=== PATIENT | female | born 1950 | race Hispanic/Latino ===

== ENCOUNTER 2018-07-16 08:27 | Observation (INO) | payer MEDICARE ==
[2018-07-16] MEDS ORDERED: NACL 0.9% 500 ML 500 ML IV SCH (09:00)
[2018-07-16 09:31] LABS: Basophils % (Auto) 0.6 % (0.0-1.8); Eosinophils # (Auto) 0.3 K/mm3 (0.0-0.4); Eosinophils % (Auto) 3.8 % (0.0-4.3); Hematocrit 32.4 % (30.3-42.9); Hemoglobin 11.1 gm/dl (10.1-14.3); Lymphocytes # (Auto) 1.9 K/mm3 (1.2-5.4); Mean Corpuscular HGB Conc 34 % (30-34); Mean Corpuscular Volume 88 fl (79-97); Monocytes # (Auto) 0.5 K/mm3 (0.0-0.8); Monocytes % (Auto) 7.6 % (0.0-7.3); Platelet Count 239 K/mm3 (140-440); Red Blood Count 3.67 M/mm3 (3.65-5.03); Red Cell Distribution Width 13.7 % (13.2-15.2)
[2018-07-16 09:39] LABS: INR 0.88 (0.87-1.13)
[2018-07-16 09:40] LABS: Partial Thromboplastin Time 29.7 Sec. (24.2-36.6)
[2018-07-16 10:01] LABS: Calcium 9.8 mg/dL (8.4-10.2)
[2018-07-16] MEDS ORDERED: NITROGLYCERIN SYRINGE 3 ML ONE (10:42)
[2018-07-16] MEDS ORDERED: CALAN ONE (10:42)
[2018-07-16] MEDS ORDERED: XYLOCAINE 2% INFILTRATI ONE (10:42)
[2018-07-16] MEDS ORDERED: HEPARIN/NS 5000 UNIT/500ML(CATH LAB) 1,000 ML IR ONE (10:42)
[2018-07-16] MEDS ORDERED: HEPARIN 10,000 UNITS/10 ML ONE (10:42)
[2018-07-16] MEDS ORDERED: VERSED ONE (10:42)
[2018-07-16] MEDS: SUBLIMAZE ONE ×2 (11:14→11:17)
[2018-07-16] MEDS ORDERED: PLAVIX ONE (11:53)
[2018-07-16] MEDS ORDERED: ULTRAM PO PRN (12:10)
[2018-07-16] MEDS ORDERED: ZOFRAN IV PRN (12:10)
[2018-07-16] MEDS ORDERED: AMBIEN PO PRN (12:10)
--- NOTE | 2018-07-16 12:18 | Event Note ---
Date: 07/16/18 Patient presented for outpatient cardiac catheterization, indication of moderate severity lateral wall ischemia on stress testing. We found a 95% stenosis of the proximal circumflex. The saphenous vein graft to the circumflex system was occluded. We performed ad hoc angioplasty and stenting of the [place] circumflex with deployment of a 3.0 mm drug-eluting stent, excellent post-angioplasty result. She will be admitted for observation overnight, anticipated discharge tomorrow morning. On discharge, in addition to aspirin 325 daily and Lipitor 40 mg daily, we will add Imdur 30 mg daily, Plavix 75 mg daily, metoprolol 25 mg twice a day and lisinopril 2.5-5 mg daily.
--- NOTE | 2018-07-16 12:50 | Cardiac Catherization Report ---
CARDIAC CATHETERIZATION AND CORONARY ANGIOPLASTY REPORT REASON FOR PROCEDURE: The patient is a 67-year-old woman with coronary artery disease, and 18-year-old 3-vessel coronary bypass. She recently underwent a Lexiscan thallium stress test which was abnormal, revealing a moderate degree of reversible inferolateral wall ischemia. Based on the abnormal thallium, she was recommended for a cardiac catheterization. PROCEDURE: 1. Left heart catheterization. 2. Selective left and right coronary angiography. 3. Angiography of the left internal mammary artery graft. 4. Angiography of the saphenous vein graft. 5. Left ventricular angiography. 6. Angioplasty and stenting of the proximal circumflex artery. 7. Sedation time, start 11:14, end 11:50. The patient was prepped and draped in a sterile fashion after informed consent. Right femoral artery was entered using Seldinger technique followed by placement of a 6-[place]zech sheath. Selective left and right coronary angiography was performed using #4 left and right Deirdre catheters. The right Deirdre was used for saphenous vein graft angiography. A left internal mammary artery catheter was used for left internal mammary artery graft angiography. A pigtail catheter was used for left ventricle angiography. The angiograms were reviewed. CORONARY ANGIOGRAPHY: There was diffuse heavy calcification of both left and right coronary arteries. The left main coronary artery contained mild distal narrowing. The left anterior descending artery was completely occluded in its mid segment after a medium sized mid diagonal branch. There was diffuse mild atherosclerosis of the proximal LAD leading to its total occlusion. The diagonal branches were also diffusely diseased. The left internal mammary artery graft to the LAD was patent with good anastomosis to the mid LAD beyond the occlusion, and good distal runoff. The [place] circumflex artery contained a 95% stenosis of its proximal AV groove segment. This lesion led to a medium to large terminal obtuse marginal. The saphenous vein graft to the circumflex system was completely occluded at its origin. This appeared to be a chronically occluded vein graft at its ostium. The right coronary artery was dominant. This vessel was occluded in its proximal to mid segment. The saphenous vein graft to the distal right coronary artery was also chronically occluded at its origin. There was faint collateralization of the distal right coronary from the left coronary system. Left ventricular systolic function was well preserved, ejection fraction approximately 50%. CORONARY ANGIOPLASTY: After review of the angiograms, we recommended ad hoc coronary intervention to the proximal circumflex stenosis. We selected a #3 XB guiding catheter, advanced to the left coronary ostium. A 0.014 inch Punch Machine Hand 50 guidewire was transitioned into the circumflex, across the lesional segment. After optimal wire placement in the distal vessel, we then deployed a 2.5 mm balloon catheter to the proximal circumflex and adequately predilated the lesion. Following this, a 3.0 x 12 mm drug-eluting stent was then deployed across the lesional segment and inflated to optimal pressures. Following stenting, there was an excellent angiographic result, 0 residual stenosis and JERRY 3 flow down the vessel. We then removed the wires and the catheters and the patient was returned to the postprocedure unit in stable condition. The sheath will be removed when the patient's INR returns to adequate levels for sheath removal. The patient tolerated the procedure well and there were no complications. CONCLUSION: 1. Severe calcific 3-vessel disease. 2. Patent left internal mammary artery graft to the LAD. 3. Occluded saphenous vein graft to the circumflex system. There was a 95% stenosis of the proximal circumflex leading to a medium sized terminal obtuse marginal. 4. Occluded saphenous vein graft to the right coronary artery. The [place] right coronary is chronically occluded. The distal vessel is filled by faint left to right collaterals. 5. Well preserved left ventricular systolic function, ejection fraction 50%. 6. Successful angioplasty and stenting of the [place] circumflex, the greater than 95% stenosis was treated with angioplasty and stenting to a 0% residual following a 3.0 x 12 mm drug-eluting stent. [facility]# [id number] MURIEL/ROXY
[2018-07-16] MEDS ORDERED: NACL 0.9% 1000 ML 1,000 ML IV SCH (13:00)
[2018-07-16] MEDS: IMDUR PO SCH (18:10)
[2018-07-16] MEDS: ZESTRIL PO SCH (18:11)
[2018-07-16] MEDS: LOPRESSOR PO SCH (18:11)
[2018-07-17] MEDS: LOPRESSOR PO SCH ×2 (01:05→09:49)
[2018-07-17 04:27] VITALS: BP 105/46
[2018-07-17 07:59] LABS: Basophils % (Auto) 0.6 % (0.0-1.8); Eosinophils # (Auto) 0.3 K/mm3 (0.0-0.4); Eosinophils % (Auto) 4.9 % (0.0-4.3); Hematocrit 27.8 % (30.3-42.9); Hemoglobin 9.5 gm/dl (10.1-14.3); Lymphocytes # (Auto) 1.8 K/mm3 (1.2-5.4); Lymphocytes % (Auto) 32.7 % (13.4-35.0); Mean Corpuscular HGB Conc 34 % (30-34); Mean Corpuscular Volume 88 fl (79-97); Monocytes # (Auto) 0.5 K/mm3 (0.0-0.8); Monocytes % (Auto) 9.6 % (0.0-7.3); Platelet Count 217 K/mm3 (140-440); Red Blood Count 3.16 M/mm3 (3.65-5.03)
[2018-07-17 08:20] LABS: Creatine Kinase MB 2.9 ng/mL (0.0-4.0)
[2018-07-17 08:23] LABS: Calcium 8.2 mg/dL (8.4-10.2)
[2018-07-17 08:56] LABS: Chol/HDL Ratio 2.94 %
[2018-07-17] MEDS: ZESTRIL PO SCH (09:49)
[2018-07-17] MEDS: IMDUR PO SCH ×2 (09:49→11:21)
--- NOTE | 2018-07-17 09:58 | Short Stay Summary ---
Short Stay Documentation Date of service: 07/17/18 - History H&P: obtained from office - Allergies and Medications Current Medications: Allergies Sulfa (Sulfonamide Antibiotics) Allergy (Mild, Verified 07/16/18 09:03) Hives,RASH Home Medications Medication Instructions Recorded Confirmed Last Taken Type Aspirin [Aspirin TAB] 325 mg PO QDAY 07/16/18 07/16/18 07/15/18 History 1 tab AtorvaSTATin [Lipitor] 40 mg PO DAILY 07/16/18 07/16/18 07/15/18 History 1 tab Glimepiride [Amaryl] 4 mg PO DAILY 07/16/18 07/16/18 07/15/18 History 1 tab Levothyroxine [Synthroid] 125 mcg PO QAM 07/16/18 07/16/18 07/15/18 History 1 tab Active Medications Aspirin (Ecotrin) 325 mg PO QDAY [facility] Last Admin: 07/17/18 09:49 Dose: 325 mg Documented by: Atorvastatin Calcium (Lipitor) 40 mg PO DAILY [facility] Last Admin: 07/17/18 09:52 Dose: Not Given Documented by: Clopidogrel Bisulfate (Plavix) 75 mg PO QDAY [facility] Last Admin: 07/17/18 09:49 Dose: 75 mg Documented by: Glimepiride (Amaryl) 4 mg PO DAILY [facility] Last Admin: 07/17/18 09:49 Dose: Not Given Documented by: Isosorbide Mononitrate (Imdur) 30 mg PO QDAY [facility] Last Admin: 07/16/18 18:10 Dose: 30 mg Documented by: Levothyroxine Sodium (Synthroid) 125 mcg PO QAM [facility] Last Admin: 07/17/18 09:49 Dose: 125 mcg Documented by: Lisinopril (Zestril) 2.5 mg PO QDAY [facility] Last Admin: 07/17/18 09:49 Dose: Not Given Documented by: Metoprolol Tartrate (Lopressor) 25 mg PO BID [facility] Last Admin: 07/17/18 09:49 Dose: Not Given Documented by: Ondansetron HCl (Zofran) 4 mg IV Q8H PRN PRN Reason: N/V unrelieved by Reglan Tramadol HCl (Ultram) 50 mg PO Q4H PRN PRN Reason: Pain, Mild (1-3) Zolpidem Tartrate (Ambien) 5 mg PO QHS PRN PRN Reason: Sleep - Physical exam General appearance: no acute distress HEENT: PERRLA Lungs: Clear to auscultation Heart: Regular rate, Normal S1, Normal S2 - Brief post op/procedure progress note Condition: stable - Hospital course Hospital course: Patient presented for outpatient cardiac catheterization, indication of moderate severity lateral wall ischemia on stress testing. We found a 95% stenosis of the proximal circumflex. The saphenous vein graft to the circumflex system was occluded. We performed ad hoc angioplasty and stenting of the [place] circumflex with deployment of a 3.0 mm drug-eluting stent. Today, patient reports she has no chest pain or shortness of breath. Stable overnight observation. On discharge, in addition to aspirin 325 daily and Lipitor 40 mg daily, we will add Plavix 75 mg daily, metoprolol 25 mg twice a day and lisinopril 2.5 mg daily. We will hold Imdur due to borderline low blood pressure. Patient has been advised to follow up with her primary access database developer within 5-7 days. - Disposition Condition at discharge: Good Short Stay Discharge Plan Activity: advance as tolerated Weight Bearing Status: Partial Weight Bearing Diet: low fat, low cholesterol, low salt, diabetic Special Instructions: no heavy lifting (for 72 hours) Follow up with: DORIS LIU MD [Primary Care Provider] - 7 Days ROBERT GUTIERREZ MD [Staff Physician] - 7 Days Forms: CardCat PCI D/C Instructions Prescriptions: Metoprolol [Lopressor TAB] 25 mg PO BID #60 tablet Clopidogrel [Plavix] 75 mg PO QDAY #30 tablet Lisinopril [Zestril TAB] 2.5 mg PO QDAY #30 tablet
[2018-07-17] MEDS ORDERED: PLAVIX PO SCH (10:00)
[2018-07-17] MEDS ORDERED: ECOTRIN PO SCH (10:00)
[2018-07-17] MEDS ORDERED: SYNTHROID PO SCH (10:00)
[2018-07-17] MEDS ORDERED: AMARYL PO SCH (10:00)
--- NOTE | 2018-07-17 14:29 | XRay Report ---
PROCEDURE: XR CHEST 1V AP TECHNIQUE: Chest radiograph single view. HISTORY: post pci COMPARISONS: None . FINDINGS: Heart: Heart size normal. Mediastinum/Vessels: Trachea midline. Mediastinal contour unremarkable.. Lungs/Pleural space: No pneumothorax. No effusion. No acute airspace disease. Bony thorax: No acute osseous abnormality. Status post sternotomy. Status post thoracolumbar fusion. Life support devices: None. IMPRESSION: No acute cardiopulmonary abnormality. This document is electronically signed by Marco A Bustamante MD., Jul 17 2018 02:27:33 PM ET
== END 2018-07-17 13:00 | disposition home or self-care (01) ==
LOC: CATHLABREC 08:27 → 4A 12:10
PROVIDERS: ADMIT Internal Medicine Cardiovascular Disease; ATTEND Internal Medicine Cardiovascular Disease
DX: I65.23 Occlusion and stenosis of bilateral carotid arteries (principal); I82.721 Chronic embolism and thrombosis of deep veins of right upper extremity; I10 Essential (primary) hypertension; E11.9 Type 2 diabetes mellitus without complications; R94.31 Abnormal electrocardiogram [ECG] [EKG]; M46.24 Osteomyelitis of vertebra, thoracic region; Z79.82 Long term (current) use of aspirin; Z88.2 Allergy status to sulfonamides; Z85.850 Personal history of malignant neoplasm of thyroid; Z95.1 Presence of aortocoronary bypass graft; Z98.890 Other specified postprocedural states; Z98.61 Coronary angioplasty status; Z79.899 Other long term (current) drug therapy
CPT/HCPCS: 36415; 71045; 80048; 80061; 82550; 82553; 82962; 84484; 85025; 85347; 85610; 85730; 93005; 93010; 93459; C1725; C1769; C1874; C1887; C1894; C9600; G0378; J1644; J2250; J3010; J7040; 92928; A9270-GY; Q9967